=== PATIENT | female | born 2000 | race Hispanic/Latino ===

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

== ENCOUNTER 2022-05-17 20:08 | Emergency (ER) | payer OTHER ==
[~2022-05-17] VITALS: Ht 157.5 cm; Wt 53.0 kg
[~2022-05-17 20:08] MED LIST changes: +COLACE100 MG PO
[2022-05-17 20:19] VITALS: BP 129/82
[2022-05-17 20:30] VITALS: BP 125/88
[2022-05-17 22:00] VITALS: BP 125/80
[2022-05-17 22:20] VITALS: BP 125/80
== END 2022-05-17 22:25 | disposition home or self-care (01) | DRG 605 ==
LOC: ED 20:08
DX: S70.02XA Contusion of left hip, initial encounter (principal); S20.212A Contusion of left front wall of thorax, initial encounter; V43.52XA Car driver injured in collision with other type car in traffic accident, initial encounter